=== PATIENT | male | born 1990 | race Caucasian/White ===

== ENCOUNTER 2022-11-15 02:36 | Emergency (ER) | payer MEDICAID ==
[~2022-11-15] VITALS: Ht 175.3 cm; Wt 79.4 kg
[2022-11-15 02:50] VITALS: BP 136/78; PULSE 87; RESP 16; TEMP 97.4; O2SAT 99
== END 2022-11-15 05:00 | disposition home or self-care (01) ==
LOC: MED 02:36
DX: R10.9 Unspecified abdominal pain (principal); G89.29 Other chronic pain; Z02.89 Encounter for other administrative examinations
CPT/HCPCS: 99283